=== PATIENT | female | born 1980 | race Caucasian/White ===

== ENCOUNTER → 2016-07-26 | Outpatient (CLI) | payer OTHER ==
--- NOTE | 2016-07-26 16:57 | MY ---
EXAMINATION: Bilateral digital mammography utilizing CAD with bilateral breast ultrasound. HISTORY: Screening exam. Baseline. No ultrasound comparisons. 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 FINDINGS: Bilateral heterogeneously dense breast tissue. Bilateral masses are noted within the br easts. There is a 2 cm mass at the approximate 9 o'clock position of the right breast 4 cm from the nipple. There is a 1.6 cm mass within the right breast at the 10 o'clock position, 11 cm from the ni pple. There is a 2.4 cm mass within the subareolar left breast 8 cm from the nipple. The bilateral breast ultrasound also demonstrates hypoechoic, well circumscribed masses bilaterally within corresponding locations relative to the mammograms. These are parallel in configuration and d emonstrate no internal color Doppler flow. No significant shadowing is noted. There are similar smal ler masses noted within the breasts bilaterally as well. Otherwise, no suspicious calcifications or architectural distortions. No pathologic appearing lymph nodes, no abnormal skin thickening or nipple inversion. CAD highlighted regions appear normal at this time. IMPRESSION: BI-RADS category III - probably benign. Hypoechoic, fairly well circumscribed parallel nonvascular masses bilaterally. These most likely represent fibroadenomas. At minimum, a followup in six months with a bilateral breast diagnostic study is recommended. Alte rnatively, tissue sampling by biopsy is also a consideration. The patient states she is going to hav e a breast MRI. Recommendations could be reevaluated following the results. THE FALSE-NEGATIVE RATE OF MAMMOGRAM IS APPROXIMATELY 10%. MANAGEMENT OF A PALPABLE ABNORMALITY MUST BE BASED UPON CLINICAL GROUNDS. SENSITIVITY FOR DETECTION OF ABNORMALITIES IN DENSE BREASTS IS LOW. NOTE: A letter will be sent to the patient regarding findings. [facility] -- [facility] [place] [phone] - FAX [phone]
== END ==
LOC: MW.MAM 10:47
PROVIDERS: ATTEND Obstetrics & Gynecology
DX: N63 Unspecified lump in breast (principal)
CPT/HCPCS: 76641; G0204

== ENCOUNTER 2020-03-02 16:27 | Emergency (ER) | payer OTHER ==
--- NOTE | 2020-03-02 16:28 | EDM.PDOC ---
ED HPI GENERAL MEDICAL PROBLEM - General Stated Complaint: LEFT ARM FINGER INJURY Time Seen by Provider: 03/02/20 16:27 Source of Information: Reports: Patient History Limitations: Reports: No Limitations - History of Present Illness INITIAL COMMENTS - FREE TEXT/NARRATIVE: 40-year-old female no relevant past medical history presents for laceration to her left fifth digit. Patient was cutting a bun with a new serrated knife when she accidentally cut herself. She is uncertain of her Tdap status. No other injuries reported. No blood thinner use, no bleeding disorders. L 5th finger Pain Score (Numeric/FACES): 1 - Related Data Allergies Allergy/AdvReac Type Severity Reaction Status Date / Time broccoli Allergy Diarrhea Verified 03/02/20 16:43 Eggs Allergy Diarrhea Uncoded 03/02/20 16:43 Ham Allergy Diarrhea Uncoded 03/02/20 16:43 Home Meds: Home Meds Omeprazole Magnesium [Prilosec Otc] 1 tab PO DAILY PRN 03/02/20 [History] Past Medical History Cardiovascular History: Reports: Heart Murmur, Other (See Below) Other Cardiovascular History: Mitral Valve Prolapse Gastrointestinal History: Reports: GERD Other Gastrointestinal History: Heartburn/GERD even when not SURFACE BOSS History: Reports: Other SURFACE BOSS History: Term , G-3, P-1, history of prior Endocrine/Metabolic History: Reports: Other (See Below) Other Endocrine/Metabolic History: gall bladder out 5 y ago - Past Surgical History HEENT Surgical History: Reports: Oral Surgery Social & Family History - Family History Oncologic: Reports: Breast ED ROS GENERAL - Review of Systems Review Of Systems: Comprehensive ROS is negative, except as noted in HPI. ED EXAM, GENERAL - Physical Exam Exam: See Below Exam Limited By: No Limitations General Appearance: Alert, WD/WN, No Apparent Distress Throat/Mouth: Normal Oropharynx, No Airway Compromise Head: Atraumatic, Normocephalic Respiratory/Chest: No Respiratory Distress, No Accessory Muscle Use Cardiovascular: Normal Peripheral Pulses Extremities: Normal Inspection Neurological: Alert Psychiatric: Normal Affect, Normal Mood Skin Exam: Warm, Dry, Intact, Other (1-cm laceration to L 5th digit) ED GENERAL MEDICAL PROCEDURES - Laceration/Wound Repair Left Digit - 5th (Baby) Lac/wound length in cm: 1 Appearance: Superficial Distal NVT: Neuro & Vascular Intact Anesthetic Type: Local Local Anesthesia - Lidocaine (Xylocaine): 1% Plain Local Anesthetic Volume: 3cc Skin Prep: Isopropyl Alcohol (Alcohol) Saline irrigation (cc's): 30 Closed with: Sutures Suture Size: 5-0 # of Sutures: 3 Suture Type: Nylon Drain Placement: No Sterile Dressing Applied: Nurse Tetanus Status Addressed: Yes Complications: No Course - Vital Signs Last Recorded V/S: Last Vital Signs Temp 96.1 F L 03/02/20 16:41 Pulse 86 03/02/20 16:41 Resp 16 03/02/20 16:41 BP 153/95 H 03/02/20 16:41 Pulse Ox 97 03/02/20 16:41 - Orders/Labs/Meds Orders: Active Orders 24 hr Category Date Time Status Vaccines to be Administered [RC] PER UNIT ROUTINE Care 03/02/20 16:53 Ordered Meds: Medications Discontinued Medications Generic Name Dose Route Start Last Admin Trade Name Freq PRN Reason Stop Dose Admin Diphtheria/Tetanus/Acell Pertussis 0.5 ml 03/02/20 16:53 Adacel IM 03/02/20 16:54 .ONCE ONE Lidocaine HCl 10 ml 03/02/20 16:37 Xylocaine 1% INJECT 03/02/20 16:38 ONETIME ONE Lidocaine HCl Confirm 03/02/20 16:41 Xylocaine-Mpf 1% Administered 03/02/20 16:42 Dose 5 ml .ROUTE .STK-MED ONE - Re-Assessments/Exams Free Text/Narrative Re-Assessment/Exam: 03/02/20 16:56 Laceration repaired, patient to return in 7 to 10 days for suture removal. Signs and symptoms of wound infection were discussed with patient. Departure - Departure Time of Disposition: 16:56 Disposition: Home, Self-Care 01 Condition: Good Clinical Impression: Laceration - Discharge Information Instructions: Sutures, [place], or Adhesive Wound Closure, [id number] Referrals: Diana Fowler NP [Primary Care Provider] - Additional Instructions: You had sutures placed to fix your laceration. You should return to either your primary care physician's office, urgent care center, or the emergency department in 7 to 10 days to have the sutures removed. The following information is given to patients seen in the emergency department who are being discharged to home. This information is to outline your options for follow-up care. We provide all patients seen in our emergency department with a follow-up referral. The need for follow-up, as well as the timing and circumstances, are variable depending upon the specifics of your emergency department visit. If you don't have a primary care physician on staff, we will provide you with a referral. We always advise you to contact your personal physician following an emergency department visit to inform them of the circumstance of the visit and for follow-up with them and/or the need for any referrals to a consulting specialist. The emergency department will also refer you to a specialist when appropriate. This referral assures that you have the opportunity for follow-up care with a specialist. All of these measure are taken in an effort to provide you with optimal care, which includes your follow-up. Under all circumstances we always encourage you to contact your private physician who remains a resource for coordinating your care. When calling for follow-up care, please make the office aware that this follow-up is from your recent emergency room visit. If for any reason you are refused follow-up, please contact the [facility] Emergency Department at and asked to speak to the emergency department charge nurse. Please follow up with your primary care physician. If you do not have a primary care physician, see below: [facility] [address] [place] [id number] [facility] [address] [place] [id number] Sepsis Event Note (ED) - Focused Exam Vital Signs: Vital Signs Temp Pulse Resp BP Pulse Ox 03/02/20 16:41 96.1 F L 86 16 153/95 H 97 - My Orders Last 24 Hours: My Active Orders 03/02/20 16:53 Vaccines to be Administered [RC] PER UNIT ROUTINE - Assessment/Plan Last 24 Hours: My Active Orders 03/02/20 16:53 Vaccines to be Administered [RC] PER UNIT ROUTINE
[2020-03-02] MEDS ORDERED: Lidocaine 1% 10 ML MDV INJECT ONE (16:37)
[2020-03-02] MEDS ORDERED: Diphtheria,Pertussis(Acell),Tetanus Vaccine 0.5 ML Syringe IM ONE (16:53)
[2020-03-02 17:22] VITALS: BP 156/96; PULSE 92
== END 2020-03-02 17:10 | disposition home or self-care (01) ==
LOC: MW.ED 16:27
DX: S61.217A Laceration without foreign body of left little finger without damage to nail, initial encounter (principal); K21.9 Gastro-esophageal reflux disease without esophagitis; Z91.012 Allergy to eggs; Z91.018 Allergy to other foods; Z79.899 Other long term (current) drug therapy; Z23 Encounter for immunization; W26.0XXA Contact with knife, initial encounter
CPT/HCPCS: 12001; 90471; 90715; 99282; J2001

== ENCOUNTER 2020-03-10 10:20 | Emergency (ER) | payer OTHER ==
[2020-03-10 17:57] VITALS: BP 142/87; PULSE 87
== END 2020-03-10 10:55 | disposition home or self-care (01) ==
LOC: MW.ED 10:20
DX: Z48.02 Encounter for removal of sutures (principal)
CPT/HCPCS: 99281